=== PATIENT | female | born 1980 | race Caucasian/White ===

== ENCOUNTER 2020-08-16 17:23 | Emergency (ER) | payer OTHER ==
[2020-08-16 17:29] VITALS: TEMP 98.3
[2020-08-16 18:51] LABS: ALANINE AMINOTRANSFERASE 19 U/L (4-34); ALBUMIN 4.5 gm/dL (3.5-5.0); ALKALINE PHOSPHATASE 81 U/L (50-136); ANION GAP 11 mmol/L (7-16); AST,SGOT 25 U/L (15-37); BILIRUBIN,TOTAL 0.6 mg/dL (0.0-1.0); BLOOD UREA NITROGEN 13 mg/dL (7-17); CARBON DIOXIDE 19 mmol/L (22-30); CHLORIDE 108 mmol/L (98-107); CREATININE, serum 0.56 (0.52-1.25); GLUCOSE 86 mg/dL (74-106); POTASSIUM 4.1 mmol/L (3.4-5.0); SODIUM 138 mmol/L (137-145); TOTAL PROTEIN 7.6 gm/dL (6.4-8.2)
[2020-08-16 19:00] LABS: ACETAMINOPHEN < 10 ug/mL (10-30); ALCOHOL(ethanol),MEDICAL < 10 mg/dL; SALICYLATE < 1.0 mg/dL
[2020-08-16] MEDS ORDERED: MINIPRESS2 MG PO (19:11)
[2020-08-16] MEDS ORDERED: MINIPRESS 1M1 MG/CAP PO (19:11)
[2020-08-16] MEDS ORDERED: SEROQUEL300 MG PO ×2 (19:12)
[2020-08-16] MEDS ORDERED: COGENTIN 2MG2 MG/TA1 (19:13)
[2020-08-16] MEDS ORDERED: DESYREL DIVIDO300 MG PO (19:14)
[2020-08-16] MEDS ORDERED: ZOLOFT 25MG25 MG PO (19:14)
[2020-08-16] MEDS ORDERED: BENADRYL50 MG PO (19:18)
[2020-08-16] MEDS ORDERED: AMITRIPTYLINE H25 M1 (19:20)
[2020-08-16] MEDS ORDERED: BUSPAR DIVIDOSE15 MG PO (19:21)
[2020-08-16 20:07] LABS: BASO # 0.1 (0.0-0.2); BASO % 0.5 % (0.0-2.0); EOS # 0.1 (0.0-0.7); EOS % 0.9 % (0-4.0); GRAN # 6.4 (1.4-6.5); GRAN % 69.7 % (42.2-75.2); HEMATOCRIT 40.6 % (37.0-47.0); HEMOGLOBIN 13.7 g/dl (12.5-16.0); LYMPH # 2.1 (1.2-3.4); LYMPH % 22.5 % (20.0-51.0); MEAN CELL VOLUME 93 fl (80.0-100.0); MEAN CORPUSCULAR HEMOGLOBIN 32 pg (27.0-31.0); MEAN CORPUSCULAR HGB CONC 34 g/dl (33.0-37.0); MEAN PLATELET VOLUME 9.7 fl (7.4-10.4); MONO # 0.6 (0.1-0.6); MONO % 6.2 % (1.7-9.3); PLATELET COUNT 280 K/mm3 (130-400); RED BLOOD COUNT 4.35 M/mm3 (4.10-5.30); REDCELL DISTRIBUTION WIDTH-CV 12.5 % (11.5-14.5)
[2020-08-16 21:18] LABS: COLLECTION METHOD CLEAN CATCH
[2020-08-16 21:36] LABS: MUCOUS Present /lpf; PH 5 (5-8); SQUAMOUS EPITHELIAL 0-2 /hpf; URINE APPEARANCE Hazy; URINE BACTERIA None Seen /hpf; URINE BILIRUBIN Negative (NEGATIVE); URINE BLOOD Negative (NEGATIVE); URINE COLOR Amber; URINE GLUCOSE Negative (NEGATIVE); URINE KETONE 1+ (NEGATIVE); URINE LEUKOCYTE ESTERASE Negative (NEGATIVE); URINE NITRATE Negative (NEGATIVE); URINE PROTEIN(semi-quant) 1+ (NEGATIVE); URINE RBC 0-2 /hpf; URINE UROBILINOGEN Negative (NEGATIVE)
[2020-08-16 21:40] LABS: TRICYCLIC ANTIDEPRESS URINE POSITIVE
[2020-08-16 22:09] VITALS: BP 121/80
[2020-08-17 02:45] VITALS: PULSE 78
== END 2020-08-17 02:45 | disposition home or self-care (01) ==
LOC: COL.ER 17:23
PROVIDERS: Emergency Medicine
DX: F15.90 Other stimulant use, unspecified, uncomplicated (principal); F22 Delusional disorders; Z32.02 Encounter for pregnancy test, result negative